=== PATIENT | female | born 1930 | race Caucasian/White ===

== ENCOUNTER 2018-03-28 07:54 | Day surgery (SDC) | payer MEDICARE ==
[~2018-03-28] VITALS: Ht 147.3 cm; Wt 55.0 kg
[~2018-03-28 07:54] MED LIST: AMLO5 PO; ASPI81CH PO; CENTRUM SILVER1 EAC2 PO; FURO20 PO; LOSA50 PO; METO50 PO; Metoprolol Succ25 MG PO; POTCHL10ER PO; SIMV10 PO; VITAMIN D-32000 UNIT PO
== END 2018-03-28 13:15 | disposition short-term general hospital (02) ==
LOC: MHTC 07:54
PROC: B211YZZ Fluoroscopy of Multiple Coronary Arteries using Other Contrast (ICD-10-PCS; principal; 2018-03-28)
PROC: 4A023N8 Measurement of Cardiac Sampling and Pressure, Bilateral, Percutaneous Approach (ICD-10-PCS; principal; 2018-03-28)
PROC: B246ZZ4 Ultrasonography of Right and Left Heart, Transesophageal (ICD-10-PCS; principal; 2018-03-28)
DX: I35.0 Nonrheumatic aortic (valve) stenosis (principal); J81.1 Chronic pulmonary edema; I10 Essential (primary) hypertension; Z82.49 Family history of ischemic heart disease and other diseases of the circulatory system; E11.9 Type 2 diabetes mellitus without complications; E78.5 Hyperlipidemia, unspecified; T82.857A Stenosis of other cardiac prosthetic devices, implants and grafts, initial encounter; Z95.2 Presence of prosthetic heart valve; I12.9 Hypertensive chronic kidney disease with stage 1 through stage 4 chronic kidney disease, or unspecified chronic kidney disease; N18.9 Chronic kidney disease, unspecified
CPT/HCPCS: 93306; 93460; 99152; 99153; C1769; C1894; J1644; J2250; J3010; J7030; J7040; Q9967